=== PATIENT | female | born 1970 | race Caucasian/White ===

== ENCOUNTER 2020-06-07 14:47 | Emergency (ER) | payer OTHER ==
[~2020-06-07] VITALS: Ht 172.7 cm; Wt 86.2 kg
[2020-06-07] MEDS ORDERED: TEGRETOL XR100 MG PO (15:05)
[2020-06-07] MEDS ORDERED: KLONOPIN1 MG (15:05)
[2020-06-07] MEDS ORDERED: ZOLOFT100 MG PO (15:05)
[2020-06-07] MEDS ORDERED: PRINIVIL10 MG PO (15:06)
[2020-06-07] MEDS ORDERED: MYSOLINE50 MG PO (15:06)
[2020-06-07] MEDS ORDERED: PROTONIX 20 MG20 MG PO (15:07)
[2020-06-07] MEDS ORDERED: FUROSEMIDE 20 M20 MG PO (15:07)
[2020-06-07] MEDS ORDERED: CELEBREX50 MG PO (15:07)
[2020-06-07] MEDS ORDERED: ZYRTEC10 M5 PO (15:07)
[2020-06-07] MEDS ORDERED: DILAUDID2 MG PO (15:07)
[2020-06-07] MEDS ORDERED: KLOR-CON 10 ER10 MEQ PO (15:07)
[2020-06-07 15:49] LABS: ABSOLUTE EOSINOPHILS 0.1 thou/uL (0.0-0.7); ABSOLUTE LYMPHOCYTES 1.6 thou/uL (0.8-5.3); ABSOLUTE MONOCYTES 0.4 thou/uL (0.0-1.2); ABSOLUTE NEUTROPHILS 4.3 thou/uL (1.6-8.1); BASOPHILS 0.4 %; HEMATOCRIT 35.8 % (37.0-47.0); HEMOGLOBIN 12.7 gm/dL (12.0-15.0); LYMPHOCYTES 24.3 %; MCH 32.4 pg (26.0-34.0); MCHC 35.3 g/dL (28.0-37.0); MCV 91.6 fL (80.0-100.0); MONOCYTES 6.6 %; MPV 7.4 fl. (7.2-11.1); NUCLEATED RBCS 0 /100WBC; PLATELET COUNT* 342 thou/uL (150-400); POLYS 67.7 %; RBC 3.91 mil/uL (4.20-5.00); RDW-CV 14.6 % (10.5-14.5); WBC 6.4 thou/uL (4.0-11.0)
[2020-06-07 15:54] LABS: CALCIUM 8.9 mg/dL (8.5-10.1); CREATININE 0.9 mg/dL (0.6-1.3); POTASSIUM 3.5 mmol/L (3.5-5.1)
[2020-06-07 15:54] LABS: URINE BILIRUBIN NEGATIVE (Negative); URINE BLOOD 2+ (Negative); URINE CLARITY CLEAR; URINE COLOR YELLOW; URINE GLUCOSE-RANDOM NEGATIVE (Negative); URINE KETONES NEGATIVE (Negative); URINE LEUKOCYTES-REFLEX NEGATIVE (Negative); URINE NITRITE-REFLEX NEGATIVE (Negative); URINE PROTEIN NEGATIVE (Negative); URINE UROBILINOGEN 0.2 E.U./dl (0.2-1.0)
[2020-06-07 15:59] LABS: ALBUMIN 4.2 g/dL (3.4-5.0); TOTAL BILIRUBIN 0.2 mg/dL (<0.1-1.0); TOTAL PROTEIN 7.3 g/dL (6.4-8.2)
[2020-06-07 16:06] LABS: CASTS None Seen /LPF (None Seen); CRYSTALS None Seen /LPF (None Seen); SQUAMOUS 4-10 Moderate /LPF (0-3); URINE RBC 3-10 Few /HPF (0-2); URINE WBC-REFLEX 0-5 Rare /HPF (0-5)
[2020-06-07 16:26] LABS: APTT 29.5 Seconds (25.0-31.3); PROTIME 10.4 Seconds (9.20-11.50)
[2020-06-07 18:11] VITALS: BP 134/77
== END 2020-06-07 18:12 | disposition home or self-care (01) ==
LOC: M.ERS 14:47
PROVIDERS: Physician Assistant
DX: M54.5 Low back pain (principal); R31.9 Hematuria, unspecified; E87.1 Hypo-osmolality and hyponatremia; I10 Essential (primary) hypertension